=== PATIENT | female | born 1985 | race Caucasian/White ===

== ENCOUNTER → 2023-12-12 18:14 | Outpatient (REF) | payer OTHER, SELFPAY | LOC: RAD 18:14 | PROVIDERS: ATTENDING PHYSICIAN Family Medicine | DX: M25.571 Pain in right ankle and joints of right foot (principal) | CPT/HCPCS: 73610 ==

== ENCOUNTER 2023-12-12 18:54 | Emergency (ER) | payer OTHER, SELFPAY ==
[2023-12-12 18:57] VITALS: BP 178/122
--- NOTE | 2023-12-12 19:48 | ED.GENMED ---
History of Present Illness
General
Chief Complaint: Musculo-Skeletal Complaint
Source: patient
Exam Limitations: none
Time Seen by Provider: 12/12/23 19:20
Nursing documentation reviewed up to this point in time: agreed with
Travel History
Have you had any contact with someone who has COVID-19?: No
Do you have any symptoms of coronavirus? Fever > 100 degrees, chills, cough, shortness of breath, sore throat, loss of taste or smell, muscle aches, or headache?: No
History of Present Illness
History of Present Illness:
Patient to ED with complaint of right ankle pain. States she rolled her ankle on Monday. Has not been able to bear weight since. Had outpatient xray and then came to ED.
Past History
Past History
ED Past Medical History: None
ED Past Surgical History: None
Social History
Tobacco: Non-smoker
Alcohol: None
Drug: None
Personal:
Living: with family
Review of Systems
Review of Systems
Allergies reviewed?: Yes
All Other Systems: ROS reviewed and negative except as documented in HPI and ROS
Constitutional: Reports no symptoms
Musculoskeletal: Reports joint pain (Pain to right lat ankle)
Skin: Reports no symptoms
Neurological: Reports no symptoms
Psychiatric: Reports no symptoms
Phy Exam
General Physical Exam
General Presentation: well appearing and no apparent distress
General age: appears stated age
General Skin: warm and dry
General Habitus: normal
General Mental: alert
Musculoskeletal Exam
Musculoskeletal Exam: neuro vasc intact and other (Achilles intact. No tenderness base of 5th, proximal tib/fib)
Skin Exam
Skin Exam: normal color, warm/dry and no rash
Psychiatric Exam
Psychiatric Exam: normal mood/affect
Course
Orders/Labs/Results
Orders:
Orders
12/12/23 19:27
Ortho Boot Right- Treatment ONCE
Short or tall?: Tall
Vital Signs
Initial and Last Documented VS:
Initial Vital Signs
Temp Pulse Resp BP Pulse Ox
97.8 F 88 22 178/122 97
12/12/23 18:57 12/12/23 18:57 12/12/23 18:57 12/12/23 18:57 12/12/23 18:57
Last Documented Vital Signs
Temp Pulse Resp BP Pulse Ox
97.8 F 88 22 178/122 97
12/12/23 18:57 12/12/23 18:57 12/12/23 18:57 12/12/23 18:57 12/12/23 18:57
*Radiology
Radiology exam reviewed: radiology read reviewed
*Pulse Oximetry
Patient hypoxic: no
*Critical Care Note
Total Time (30-74mins, 75-104mins- exclusive of procedures): Not Applicable
ED Attending Note
-
Portions of this chart may have been created with voice recognition software.� Occasional wrong word or��sound alike� substitutions may have occurred due to the inherent limitations of voice recognition software.
Discharge Plan
Departure
Patient Disposition: Home (Routine Discharge)
Date of Disposition: 12/12/23
Time of Disposition: 19:28
Patient with high blood pressure during this ER visit?: No
Condition: Good
Covid-19: Not Applicable
Discharge Problem:
Ankle sprain
Instructions: Ankle Sprain (DC), Using Cold for Pain
Prescriptions:
No Action
spironolactone 100 MG tablet
100 mg PO DAILY
amlodipine 10 MG tablet
10 mg PO DAILY
methylprednisolone [Medrol (Jose)] 4 MG tablets,dose pack
4 tab PO . DIRECT Qty: 1 0RF
ondansetron 4 MG tablet,disintegrating
4 mg PO TIDPRN PRN (Reason: nausea/vomiting) Qty: 12 0RF
Referrals:
Edson Foley MD [Active] - (Follow up if your symptoms do not begin to improve over the next week.)
Interventions
Interventions:
*Risk Screen - Suicide Last Done: 12/12/23 18:57
*Neglect/Abuse Screening Last Done: 12/12/23 18:57
Discharge Date and Time
Print Language: KOREAN
Musculoskeletal Injury Exam
Musculoskeletal Injury Exam
Right Lateral Ankle:
Pain with Movement?: Moderate
Tender to palpation?: Moderate
Soft tissue swelling?: None
External deformity and angulation?: None
Joint effusion?: None
Contusion?: None
Hematoma-local bleeding into tissue?: None
Strain- Sprain- Tear (Connective tissue injury)?: Moderate
Crepitus with movement?: No
Joint instability?: No
Malalignment/deformity?: No
Range of motion: Limited
Distal skin color and temperature: normal-warm & good color
Capillary Refill: normal
Normal distal neurovascular exam?: Yes
Peripheral Pulses: posterior tibial (right): 3+ and dorsalis pedis (right): 3+
== END 2023-12-12 20:07 | disposition home or self-care (01) ==
LOC: EMR 18:54
PROVIDERS: EMERGENCY PHYSICIAN Emergency Medicine; FAMILY PHYSICIAN Family Medicine
DX: S93.401A Sprain of unspecified ligament of right ankle, initial encounter (principal); X50.1XXA Overexertion from prolonged static or awkward postures, initial encounter
CPT/HCPCS: 99282; 73610